=== PATIENT | female | born 1955 | race Caucasian/White ===

== ENCOUNTER 2023-11-27 07:52 | Emergency (ER) | payer MEDICARE, BC, SELFPAY ==
[2023-11-27 08:00] VITALS: BP 151/79; PULSE 107; RESP 16; TEMP 36.2; O2SAT 98
--- NOTE | 2023-11-27 08:15 | DI.RAD_ITS ---
Exam(s) XR FOOT LT COMPLETE EXAM: XR FOOT LT COMPLETE CLINICAL HISTORY: foot pain. TECHNIQUE: 2D digital imaging was performed. COMPARISON: CR,XR XR FOOT RT COMPLETE from 11/27/2023 FINDINGS: 3 views No evidence of fracture or diastasis of the Lisfranc joint. Bone density normal. No osseous lesions . No degenerative changes. No erosions. Moderate size inferior calcaneal spur noted. IMPRESSION: No acute osseous findings in the foot. DATA REPOSITORY: RADIATION DOSE DELIVERED:
--- NOTE | 2023-11-27 08:15 | DI.RAD_ITS ---
Exam(s) XR FOOT RT COMPLETE EXAM: XR FOOT RT COMPLETE CLINICAL HISTORY: foot pain. TECHNIQUE: 2D digital imaging was performed. COMPARISON: CR,XR XR FOOT LT COMPLETE from 11/27/2023 FINDINGS: 3 views No evidence of acute fracture or diastasis of the Lisfranc joint. There are 2 small orthopedic screws in the head of the 2nd metatarsal across what appears to be heale d fracture site. No evidence of osteomyelitis. No radiopaque foreign bodies. No pes planus. Infer ior calcaneal spur noted. Incidentally noted is a sclerotic intramedullary bone lesion in the distal metaphysis of the tibia pa rtially included in the field of view. Possibly related to bone infarct or other lesion. IMPRESSION: Healed fracture sites with screws at the 2nd metatarsal head-neck. No acute osseous findings. Incidental sclerotic bone lesion in the distal tibia. DATA REPOSITORY: RADIATION DOSE DELIVERED:
--- NOTE | 2023-11-27 08:15 | DI.RAD_ITS ---
Exam(s) XR KNEE RT 3V AP,LAT,VICKEY EXAM: XR KNEE RT 3V AP,LAT,VICKEY CLINICAL HISTORY: Knee pain. TECHNIQUE: 2D digital imaging was performed. COMPARISON: No exams were available for comparison FINDINGS: 3 views No evidence of acute fracture or prominent joint effusion. No significant joint space narrowing alth ough there is some degenerative pointing of the medial tibial spine evident. Bone density normal. No osteochondral defects. IMPRESSION: No acute osseous findings in the knee. Mild degenerative changes. DATA REPOSITORY: RADIATION DOSE DELIVERED:
--- NOTE | 2023-11-27 08:26 | ED.GENADUL_ITS ---
Discharge Plan Disposition Patient Disposition: Home Discharge Details Clinical Impression: Injury of medial collateral ligament of right knee Primary Care Provider: Unknown,Unknown ED Provider: Paula Seth Home Meds and New Rx's Prescriptions: New oxycodone 5 mg capsule 5 mg PO Q6H PRNQty: 10 0RF Continued acyclovir 400 mg tablet 400 mg PO TID amlodipine 10 mg tablet 10 mg PO DAILY Jakafi 5 mg tablet 5 mg PO BID perfluorohexyloctane (PF) 100 % drops 1 drp ophthalmic (eye) QID Hydrocil Powder 1 tbsp PO DAILY Rx Instructions: mix into at least 8 oz of water or juice before administering iVizia (PF) 0.5 % drops 1 drp ophthalmic (eye) TID polyethylene glycol 3350 17 gram/dose powder 17 g PO BID pantoprazole 40 mg tablet,delayed release (DR/EC) 40 mg PO DAILY ondansetron 4 mg tablet,disintegrating 4 mg PO Q8H PRN multivitamin [Daily Multi-Vitamin] Tablet 1 tab PO DAILY minoxidil 2.5 mg tablet 2.5 mg PO DAILY magnesium 200 mg tablet 400 mg PO DAILY loratadine [Allergy Relief (loratadine)] 10 mg tablet 10 mg PO DAILY ketotifen fumarate [Alaway] 0.025 % (0.035 %) drops 1 drp ophthalmic (eye) BID Rx Instructions: administer at least 8 hours apart folic acid 1 mg tablet 1 mg PO QDAY epinephrine 0.3 mg/0.3 mL auto-injector 0.3 ml IM ONCE Rx Instructions: as a single dose; may repeat once calcium 500 mg tablet 500 mg PO DAILY bisacodyl 5 mg tablet 5 mg PO BID PRN alendronate 70 mg tablet 70 mg PO QWEEK Xiidra 5 % dropperette 1 drp ophthalmic (eye) BID Rx Instructions: administer approximately 12 hours apart Discharge Instructions Instructions: Acute Pain, Adult Additional Instructions: Wear your knee immobilizer and use crutches for ambulation as tolerated Apply Voltaren gel topically Tylenol 650 mg every 6 hours as needed for pain, do not exceed 3 g of Tylenol daily You may use the oxycodone sparingly, this is addictive and can also cause constipation you should not operate a vehicle within 8 hours of taking this medication I placed you on the referral list for orthopedics for suspected avulsion injury to your medial collateral ligament, they will likely call you on Wednesday Please return should you develop worsening pain, redness, or should any new concerns arise Referrals: Farhad Dodd MD [ [facility] STAFF PHYSICIAN] - Discharge Data Discharge Date/Time-TO BE ENTERED AT DEPARTURE: 11/27/23 09:39 HPI General Date/Time Provider Initiated Documentation: 11/27/23 08:16 . HPI Narrative: 68-year-old female with history of leukemia presents with trip and fall down stairs, landing on her knees and hyperflexing great toes bilaterally. She has had pain since ambulating since that time. Denies any head injury or neck pain. Denies any strength or sensation change or any additional injuries. Denies history of coagulopathy. Has been able to ambulate with discomfort. Related Data Home Medications ?Medication ?Instructions ?Recorded ?Confirmed acyclovir 400 mg tablet 400 mg PO TID 11/27/23 11/27/23 alendronate 70 mg tablet 70 mg PO QWEEK 11/27/23 11/27/23 amlodipine 10 mg tablet 10 mg PO DAILY 11/27/23 11/27/23 bisacodyl 5 mg tablet 5 mg PO BID PRN 11/27/23 11/27/23 calcium 500 mg tablet 500 mg PO DAILY 11/27/23 11/27/23 epinephrine 0.3 mg/0.3 mL 0.3 ml IM ONCE 11/27/23 11/27/23 injection, auto-injector folic acid 1 mg tablet 1 mg PO QDAY 11/27/23 11/27/23 ketotifen fumarate 0.025 % (0.035 1 drp ophthalmic (eye) BID 11/27/23 11/27/23 %) eye drops (Alaway) lifitegrast 5 % eye drops in a 1 drp ophthalmic (eye) BID 11/27/23 11/27/23 dropperette (Xiidra) loratadine 10 mg tablet (Allergy 10 mg PO DAILY 11/27/23 11/27/23 Relief (loratadine)) magnesium 200 mg tablet 400 mg PO DAILY 11/27/23 11/27/23 minoxidil 2.5 mg tablet 2.5 mg PO DAILY 11/27/23 11/27/23 multivitamin (Daily Multi-Vitamin 1 tab PO DAILY 11/27/23 11/27/23 tablet) ondansetron 4 mg disintegrating 4 mg PO Q8H PRN 11/27/23 11/27/23 tablet oxycodone 5 mg capsule 5 mg PO Q6H PRN #10 caps 11/27/23 pantoprazole 40 mg tablet,delayed 40 mg PO DAILY 11/27/23 11/27/23 release perfluorohexyloctane (PF) 100 % 1 drp ophthalmic (eye) QID 11/27/23 11/27/23 eye drops polyethylene glycol 3350 17 17 g PO BID 11/27/23 11/27/23 gram/dose oral powder povidone (PF) 0.5 % eye drops 1 drp ophthalmic (eye) TID 11/27/23 11/27/23 (iVizia (PF)) psyllium (Hydrocil oral powder) 1 tbsp PO DAILY 11/27/23 11/27/23 ruxolitinib 5 mg tablet (Jakafi) 5 mg PO BID 11/27/23 11/27/23 Previous Rx's ?Medication ?Instructions ?Recorded oxycodone 5 mg capsule 5 mg PO Q6H PRN #10 caps 11/27/23 Allergies Allergy/AdvReac Type Severity Reaction Status Date / Time Penicillins AdvReac Intermediate Hives Verified 11/27/23 08:04 shellfish derived AdvReac Intermediate Anaphylaxis Verified 11/27/23 08:04 General Stated Complaint: Orthopedic AFIA: 4 Exam Narrative Exam Narrative: Alert and oriented, ambulatory, no visible signs of head trauma, no hip tender ness bilaterally, bilateral great toes with tenderness predominantly at the MTP joints, no visible sign of trauma, right knee with tenderness and swelling medially with tenderness of her medial collateral ligament, no obvious joint instability, no tenderness to tib-fib or femur appreciated on exam, neurovascularly Course Vital Signs Vital signs: Vital Signs Temperature 36.2 C L 11/27/23 08:00 Pulse 107 H 11/27/23 08:00 Respiratory Rate 16 11/27/23 08:00 Blood Pressure 151/79 H 11/27/23 08:00 Pulse Oximetry 98 11/27/23 08:00 Temperature 36.2 C L 11/27/23 08:00 Pulse 107 H 11/27/23 08:00 Respiratory Rate 16 11/27/23 08:00 Blood Pressure 151/79 H 11/27/23 08:00 Pulse Oximetry 98 11/27/23 08:00 Pain Level 9 11/27/23 08:00 Medical Decision Making 68-year-old female presenting in no acute distress with tenderness to right knee and bilateral great toes. X-rays were ordered for additional evaluation. No other signs of trauma or reported trauma. Right knee with possible tendon avulsion visualized on the lateral view with swelling over the MCL region and tenderness, no obvious laxity. Patient placed in a knee immobilizer which she was fully ambulatory with and referred to orthopedics in the outpatient setting. Pending virtual radiology interpretation of imaging. As there was a 240-minute wait, patient was discharged and return precautions were reviewed. Placed on referral list for orthopedics. Quality:SDOH Health Related Social Needs: No Data to Display PFSH All Active Problems (Updated 11/27/23 @ 09:15 by ANA Moon) Injury of medial collateral ligament of right knee (Acute) Social History Smoking/Tobacco Use Status: Never Smoking risk assessment performed?: Yes Alcohol Intake: never Substance use type: does not use Housing: house
[2023-11-27] MEDS: oxyCODONE 5 MG TAB PO (08:40)
--- NOTE | 2023-11-27 10:57 | DI.VRAD_ITS ---
PROCEDURE INFORMATION: Exam: XR Right Knee Exam date and time: 11/27/2023 8:46 AM Age: 68 years old Clinical indication: Other: Right knee pain TECHNIQUE: Imaging protocol: Radiologic exam of the right knee. Views: 3 views. COMPARISON: No relevant prior studies available. FINDINGS: Bones/joints: No fracture or other osseous abnormality. Joint spaces are well preserved. No significant effusion. No varus or valgus angulation. Soft tissues: Normal. IMPRESSION: Normal knee. Dictated and Authenticated by: Chance Anderson MD. Ordering:BHAVYA Mitchell MD
--- NOTE | 2023-11-27 10:58 | DI.VRAD_ITS ---
PROCEDURE INFORMATION: Exam: XR Right Foot Exam date and time: 11/27/2023 8:49 AM Age: 68 years old Clinical indication: Other: Fall, right foot pain TECHNIQUE: Imaging protocol: Radiologic exam of the right foot. Views: 3 or more views. COMPARISON: CR XR KNEE RT 3V AP,LAT,VICKEY 11/27/2023 8:46 AM FINDINGS: Bones/joints: There are 2 small orthopedic screws in the head of the 2nd metatarsal. No acute fracture or dislocation. Soft tissues: Normal. IMPRESSION: No acute findings. Dictated and Authenticated by: Chance Anderson MD. Ordering:BHAVYA Mitchell MD
--- NOTE | 2023-11-27 10:58 | DI.VRAD_ITS ---
PROCEDURE INFORMATION: Exam: XR Left Foot Exam date and time: 11/27/2023 8:50 AM Age: 68 years old Clinical indication: Other: Fall. Foot pain TECHNIQUE: Imaging protocol: Radiologic exam of the left foot. Views: 3 or more views. COMPARISON: No relevant prior studies available. FINDINGS: Bones/joints: No fracture, dislocation or arthropathic change. Soft tissues: Normal. IMPRESSION: No acute findings. Dictated and Authenticated by: Chance Anderson MD. Ordering:BHAVYA Mitchell MD
== END 2023-11-27 09:39 | disposition home or self-care (01) ==
LOC: ER 09:39
PROVIDERS: Emergency Provider Physician Assistant
DX: S83.411A Sprain of medial collateral ligament of right knee, initial encounter (principal); W10.8XXA Fall (on) (from) other stairs and steps, initial encounter; Y93.01 Activity, walking, marching and hiking; Y92.018 Other place in single-family (private) house as the place of occurrence of the external cause
CPT/HCPCS: 73562; 99283; 73630